=== PATIENT | female | born 1970 | race Caucasian/White ===

== ENCOUNTER 2020-12-20 22:36 | Emergency (ER) | payer MEDICARE, OTHER ==
[2020-12-20 23:14] LABS: BASOPHIL 0.8 % (0-2); EOSINOPHIL 2.5 % (0-5); HCT 44.7 % (37.0-47.0); HGB 13.7 g/dl (12.5-16.0); MCH 28.5 pg (25.0-31.0); MCHC 30.6 g/dL (32.0-36.0); MCV 93.1 fL (78.0-100.0); MONOCYTE 6.7 % (0-12); MPV 9.5 fL (6.0-9.5); NRBC 0; PLT 307 K/uL (150-400); WBC 10.1 K/uL (4.0-10.5)
[2020-12-20 23:15] LABS: NEUTROPHIL 45.7 % (41-80)
[2020-12-20 23:43] LABS: PROTHROMBIN TIME 12.6 SECONDS (11.8-13.4); PTT 27.7 SECONDS (24.4-34.7)
[2020-12-20 23:44] LABS: D-DIMER 0.36 ug/mLFEU (0.00-0.41)
[2020-12-20 23:47] LABS: BILIRUBIN - TOTAL 0.1 mg/dL (0.2-1.0); BUN/CREAT RATIO (CALC) 17.5 RATIO; CREATININE 0.8 mg/dL (0.51-0.95); GLOBULIN (CALCULATION) 3.9 g/dL; POTASSIUM 4.1 mmol/L (3.5-5.1); TOTAL PROTEIN 6.9 g/dL (6.4-8.2)
== END 2020-12-21 02:18 | disposition home or self-care (01) ==
LOC: FER 22:36
PROVIDERS: Emergency Medicine Emergency Medical Services
DX: R07.89 Other chest pain (principal); I10 Essential (primary) hypertension; Z86.16 Personal history of COVID-19; Z88.5 Allergy status to narcotic agent; Z88.8 Allergy status to other drugs, medicaments and biological substances
CPT/HCPCS: 36415; 71045; 80053; 83690; 84484; 85025; 85379; 85610; 85730; 93005; J1885; J2270; J2405